=== PATIENT | female | born 1940 | race Caucasian/White ===

== ENCOUNTER 2017-06-16 13:25 | Outpatient (RCR) | payer OTHER | END 2017-06-17 | LOC: RESP 13:25 | PROVIDERS: ATTEND Internal Medicine Pulmonary Disease | DX: R09.02 Hypoxemia (principal) | CPT/HCPCS: G0238; G0424 ==

== ENCOUNTER 2017-07-14 13:00 | Outpatient (RCR) | payer MEDICARE, OTHER | END 2017-07-18 | LOC: RESP 13:00 | PROVIDERS: ATTEND Internal Medicine Pulmonary Disease | DX: R09.02 Hypoxemia (principal) | CPT/HCPCS: G0238 ×8; G0424 ×8 ==

== ENCOUNTER 2017-08-13 13:00 | Outpatient (RCR) | payer MEDICARE | END 2017-08-17 | LOC: RESP 13:00 | PROVIDERS: ATTEND Internal Medicine Pulmonary Disease | DX: R09.02 Hypoxemia (principal) | CPT/HCPCS: G0238 ×6; G0424 ×6 ==

== ENCOUNTER 2017-09-08 12:53 | Outpatient (RCR) | payer MEDICARE | END 2017-09-17 | LOC: RESP 12:53 | PROVIDERS: ATTEND Internal Medicine Pulmonary Disease | DX: R09.02 Hypoxemia (principal) | CPT/HCPCS: G0238 ×7; G0424 ×7 ==

== ENCOUNTER 2017-10-15 12:57 | Outpatient (RCR) | payer MEDICARE | END 2017-10-17 | LOC: RESP 12:57 | PROVIDERS: ATTEND Internal Medicine Pulmonary Disease | DX: R09.02 Hypoxemia (principal) | CPT/HCPCS: G0238 ×3; G0424 ×3 ==

== ENCOUNTER 2017-10-29 13:00 | Outpatient (RCR) | payer MEDICARE | END 2017-11-17 | LOC: RESP 13:00 | PROVIDERS: ATTEND Internal Medicine Pulmonary Disease | DX: R09.02 Hypoxemia (principal) | CPT/HCPCS: G0238 ×7; G0424 ×7 ==

== ENCOUNTER 2017-12-01 12:56 | Outpatient (RCR) | payer MEDICARE | END 2017-12-18 | LOC: RESP 12:56 | PROVIDERS: ATTEND Internal Medicine Pulmonary Disease | DX: R09.02 Hypoxemia (principal) | CPT/HCPCS: G0238 ×4; G0424 ×4 ==